=== PATIENT | female | born 2000 | race Caucasian/White ===

== ENCOUNTER 2023-06-10 09:16 | Emergency (ER) | payer MEDICAID, SELFPAY ==
[2023-06-10 09:22] VITALS: BP 132/77; PULSE 108; RESP 14; O2SAT 98
--- NOTE | 2023-06-10 09:30 | ED.OVERDOSE ---
HPI - Overdose General Chief Complaint: Overdose Stated Complaint: od on weed butter Time Seen by Provider: 06/10/23 09:19 History of Present Illness HPI Narrative: 22-year-old female unknown medical history presents to the emergency room for evaluation of suspected marijuana acute intoxication. Patient is accompanied by her sister is. According to the sister, patient ingested a note about of ?marijuana butter? yesterday afternoon at 4:00 pm. Patient states that she is a heavy user of cannabis daily. Denies any other recreational drug use or alcohol ingestion. Patient denies headache, LOC, chest pain or shortness of breath. Denies seizures Related Data Allergies Allergy/AdvReac Type Severity Reaction Status Date / Time No Known Allergies Allergy Verified 06/10/23 09:56 Review of Systems Review of Systems: All review of systems are unremarkable except those noted in HPI and below PMFSH Social History Social History Substance use type: marijuana Exam Narrative: GENERAL: Well-appearing, well-nourished, no physical limitations, and in no acute distress. HEAD: Normocephalic, atraumatic. EYES: Conjunctival injection, PERRLA and EOMI. ENT: External nose normal, Nares clear, no rhinorrhea or epistaxis. Mucous membranes dry. NECK: Supple. No meningeal signs. No adenopathy or masses. No carotid bruits or JVD CHEST: Clear to auscultation. No respiratory distress. No wheezes rales or rhonchi. HEART: Regular rate and rhythm. No murmur heard. Normal peripheral pulses. EXTREMITIES: Normal range of motion. No edema. No clubbing or cyanosis SKIN: Warm, dry, no rash. No noted wounds NEURO: No focal deficits. Alert and oriented x3. MAEW. CN's II-XI intact bilaterally, normal gait. mildly slurred speech PSYCH: Cooperative. Course Vital Signs Vital signs: Vital Signs Pulse Rate 108 H 06/10/23 09:22 Respiratory Rate 14 06/10/23 09:22 Blood Pressure 132/77 06/10/23 09:22 Pulse Oximetry 98 06/10/23 09:22 Oxygen Delivery Room Air 06/10/23 09:22 Pulse Rate 103 H 06/10/23 09:53 Respiratory Rate 19 06/10/23 09:53 Blood Pressure 124/80 06/10/23 09:53 Pulse Oximetry 100 04/18/24 09:53 Oxygen Delivery Room Air 06/10/23 09:22 MDM - Overdose MDM Narrative Medical decision making narrative: 22-year-old female S present to the ER suspicion of marijuana intoxication. Urine tox shows evidence of cannabis use only. CBC shows slight anemia. ETOH level 0. Will send patient home stable condition with family. Lab Data 06/10/23 09:34 06/10/23 09:34 Labs: Lab Results 06/10/23 06/10/23 Range/Units 09:34 09:52 WBC 7.2 (4.5-10.0) K/mm3 RBC 4.19 L (4.2-5.4) M/mm3 Hgb 10.9 L (12.0-15.0) g/dL Hct 33.9 L (37.0-47.0) % MCV 80.9 (80-100) fl MCH 26.0 (26-34) pg MCHC 32.2 (32-36) g/dl RDW 15.7 H (11.5-14.5) % Plt Count 270 (150-375) k/mm3 MPV 9.9 (7.4-10.4) fl Immature Gran % (Auto) 0.1 (0-0.5) % Neut % (Auto) 51.7 (45.5-73.1) % Lymph % (Auto) 38.4 (18.3-44.2) % Chaffee % (Auto) 8.6 H (2.6-8.5) % Eos % (Auto) 0.8 (0-4.4) % Baso % (Auto) 0.4 (0.2-1.2) % Lymph # (Auto) 2.77 (0.9-3.2) K/mm3 [place]affee # (Auto) 0.6 (0.1-0.6) K/mm3 Eos # (Auto) 0.1 (0-0.3) K/mm3 Baso # (Auto) 0.0 (0.0-0.1) K/mm3 Abs Immat Gran (auto) 0.01 (0.00-0.031) K/mm3 Absolute Neuts (auto) 3.7 (1.3-6.7) K/mm3 Absolute Nucleated RBC 0.000 (0.0-0.012) K/mm3 Nucleated RBC % 0.0 (0.0-0.2) % Sodium 139 (137-145) mmol/L Potassium 3.5 (3.4-5.0) mmol/L Chloride 109 H (98-107) mmol/L Carbon Dioxide 18 L (22-30) mmol/L Anion Gap 12 (4-12) mmol/L BUN 13 (7-17) mg/dL Creatinine 0.80 (0.7-1.0) mg/dL Estim Creat Clear Calc 94 ml/min Estimated GFR > 60 (59 - ) Glucose 145 H (65-110) mg/dL Calcium 9.5 (8.4-10.2) mg/dL Total Bilirubin 0.3 (0.2-1.3) mg/dL AST
[2023-06-10 09:39] VITALS: PULSE 98
[2023-06-10 09:40] LABS: Basophils Percent Auto 0.4 % (0.2-1.2); Eosinophils Absolute Auto 0.1 K/mm3 (0-0.3); Eosinophils Percent Auto 0.8 % (0-4.4); Hematocrit 33.9 % (37.0-47.0); Hemoglobin 10.9 g/dL (12.0-15.0); Immature Granulocyte Absolute 0.01 K/mm3 (0.00-0.031); Immature Granulocyte Percent A 0.1 % (0-0.5); Lymphocytes Absolute Auto 2.77 K/mm3 (0.9-3.2); Lymphocytes Percent Auto 38.4 % (18.3-44.2); Mean Corpuscular HGB Conc 32.2 g/dl (32-36); Mean Corpuscular Volume 80.9 fl (80-100); Mean Platelet Volume 9.9 fl (7.4-10.4); Monocytes Absolute Auto 0.6 K/mm3 (0.1-0.6); Monocytes Percent Auto 8.6 % (2.6-8.5); Neutrophils Absolute Auto 3.7 K/mm3 (1.3-6.7); Neutrophils Percent Auto 51.7 % (45.5-73.1); Platelet Count Result 270 k/mm3 (150-375); Red Blood Count 4.19 M/mm3 (4.2-5.4); Red Cell Distribution Width 15.7 % (11.5-14.5); White Blood Count 7.2 K/mm3 (4.5-10.0)
[2023-06-10 09:50] LABS: Alanine Aminotransferase 14 U/L (6-35); Albumin Level 4.5 g/dL (3.5-5.1); Alkaline Phosphatase 82 U/L (38-126); Anion Gap 12 mmol/L (4-12); Aspartate Amino Transferase 18 U/L (14-36); Bilirubin,Total 0.3 mg/dL (0.2-1.3); Blood Urea Nitrogen 13 mg/dL (7-17); Calcium 9.5 mg/dL (8.4-10.2); Carbon Dioxide 18 mmol/L (22-30); Chloride 109 mmol/L (98-107); Estimated CRCL calculation 94 ml/min; Estimated Glomerular Filt Rate > 60; Glucose 145 mg/dL (65-110); Potassium 3.5 mmol/L (3.4-5.0); Sodium 139 mmol/L (137-145)
[2023-06-10 09:53] VITALS: BP 124/80; PULSE 103; RESP 19; O2SAT 100
[2023-06-10 09:58] LABS: Ethanol < 10 mg/dL (<10)
[2023-06-10 10:07] LABS: Appearance Urine Cloudy (Clear); Bacteria Urine Rare /hpf; Bilirubin Urine Negative (Negative); Blood Urine Negative (Negative); Color Urine Yellow (Yellow); Glucose Urine UA Negative (Negative); Ketones Urine Negative (Negative); Leukocyte Esterase Ur 1+ LEU/UL (Negative); Nitrate Urine Negative (Negative); Non Pathogenic Casts 0-2; Protein Urine Negative (Negative); RBC Urine 0-2 /hpf (0-2); Specific Grav Ur 1.024 (1.001-1.035); Squamous Epithelial Cell Urine Few /hpf (Few); Urobilinogen Urine 0.2 mg/dL (<2.0); pH Urine 5.5 (5.0-9.0)
[2023-06-10 10:16] LABS: Add Urine Microscopic? YES
[2023-06-10 10:21] LABS: Amphetamine Screen Urine Negative (Negative); Barbiturate Screen Urine Negative (Negative); Benzodiazepines Screen Urine Negative (Negative); Cannabinoid Screen Urine Positive (Negative); Cocaine Screen Urine Negative (Negative); Methadone Screen Urine Negative (Negative); Opiate Screen Urine Negative (Negative); Phencyclidine Screen Urine Negative (Negative)
[2023-06-10 11:30] VITALS: BP 112/70; PULSE 87; RESP 16; O2SAT 99
== END 2023-06-10 11:31 | disposition home or self-care (01) ==
PROVIDERS: Emergency Provider Nurse Practitioner Family
DX: T40.711A Poisoning by cannabis, accidental (unintentional), initial encounter (principal); F12.929 Cannabis use, unspecified with intoxication, unspecified
CPT/HCPCS: 36415; 80053; 80307; 81001; 81025; 85025; 87086; 99284

== ENCOUNTER 2024-11-25 09:23 | Emergency (ER) | payer MEDICAID, SELFPAY ==
--- NOTE | ~2024-11-25 | XR_ITS ---
Examination: XR knee RT min 4V Clinical History: knee pain after feeling pop Comparison: None Technique: 4 views right knee Findings/impression: 1. No fracture, dislocation, or effusion right knee. 2. No significant degenerative changes. 3. Benign focus distal lateral femoral shaft. Reviewed, dictated and finalized at location R.
--- OUTSIDE RECORDS SUMMARY | 2024-11-25 09:26 | XMS_ITS | Clinical Summary ---
Author Organization [facility] Address [address] [place] [address] Phone Care Team Providers Care Medical Insurance Clerk Name Role Phone Enrique Allen DO Primary Care Provider + Allergies Active Allergy Reactions Criticality Noted Date Comments Peanut Anaphylaxis High 04/24/2024 Shellfish Containing Products Anaphylaxis High 05/10 Medications ferrous sulfate 325 mg (65 mg iron) tablet Take 325 mg by mouth daily. 02/27/2024 Active fluconazole (DIFLUCAN) 150 mg tablet Take 1 tablet by mouth today. May take another dose in 3 days(72 hours) if symptoms persist. 2 Tablet 06/01/2024 Active sertraline (ZOLOFT) 100 mg tablet Take 1 Tablet (100 mg) by mouth daily. 90 Tablet 09/11/2024 Active cyclobenzaprine (FLEXERIL) 10 mg tablet Take 1 Tablet (10 mg) by mouth daily at bedtime. 30 Tablet 09/11/2024 Active Active Problems Problem Noted Date Diagnosed Date ZAKIA (generalized anxiety disorder) Encounters Date Type Department Care Team Description 11/22/2024 Patient Outreach [facility] [address] [phone] [facility] Out[facility] [address] [phone] Silvia Lazo [facility] 11/06/2024 Telephone [facility] Care [address] [phone] Enrique Allen, DO Needs Orders Written 10/17/2024 External Device Data STL ABSTRACTION Provider, Abstract 10/17/2024 External Device Data STL ABSTRACTION Provider, Abstract 09/27/2024 External Device Data STL ABSTRACTION Provider, Abstract 09/12/2024 External Device Data STL ABSTRACTION Provider, Abstract 09/12/2024 External Device Data STL ABSTRACTION Provider, Abstract 09/11/2024 2:40 PM CDT Office Visit [facility] [address] [phone] Concha Grover MD ZAKIA (generalized anxiety disorder) (Primary Dx) from Last 3 Months Family History * Patient is adopted Medical History Relation Name Comments Breast Cancer Neg Hx Colon Cancer Neg Hx Ovarian Cancer Neg Hx Uterine Cancer Neg Hx Social History Tobacco Use Types Packs/Day Years Used Date Smoking Tobacco: Former Cigarettes Smokeless Tobacco: Never Tobacco Cessation:Counseling Given: Not Answered Alcohol Use Standard Drinks/Week Comments Yes 0 (1 standard drink = 0.6 oz pur e alcohol) rarely [facility] Utilities Answer Date Recorded In the past 12 months has e electric, gas, oil, or water company threatened to shut off services in your home? No 07/21/2023 Financial Resource Strain Answer Date R ecorded How hard is it for you to pa y for the very basics like food, housing, medical care, and heating? Very hard 07/21/2023 Food Insecurity Answer Date Recorded In the past 12 months, have you worried that your food would run out before you had money to buy more? Never true 07/21/2023 In the past 12 months, did y ou run out of food and didn't have money to buy more? Never true 07/21/2023 Transportation Needs Answer Date Record ed In the past 12 months, has l ack of transportation kept you from medical appointments or from getting medications? No 06/23 In the past 12 months, has l ack of transportation kept you from meetings, work, or from getting things needed for daily living? No 07/21/2023 Housing Stability Answer Date Recorded In the last 12 months, was t here a time when you were not able to pay the mortgage or rent on time? No 07/21/2023 Number of Times Moved in the Last Year Not on fi le 07/21/2023 Unstable Housing in the Last Year Not on file 07/21/2023 Feeling Safe Answer Date Recorded Are you in a relationship wi th someone who hurts you emotionally and/or physically? No 06/14/2024 Comments No Sex and Gender Information Value Date Recorded Sex Assigned at Not on file Legal Sex Female 5:36 PM EDUCATION NURSE Gender Identity Not on file Sexual Orientation Not on file Last Filed Vital Signs Vital Sign Reading Time Taken Comments Blood Pressure 106/68 09/11/2024 2:19 PM CDT Pulse 81 09/11/2024 2:19 PM CDT Temperature 36.8 C (98.2 F) 06/14/2024 3:17 PM CDT Respiratory Rate 16 06/14/2024 3:17 PM CDT Oxygen Saturation 99% 09/11/2024 2:19 PM CDT Inhaled Oxygen Concentration - - Weight 66.2 kg (146 lb) 09/11/2024 2:19 PM CDT Height 170.2 cm (5' 7) 09/11/2024 2:19 PM CDT Body Mass Index 22.87 09/11/2024 2:19 PM CDT Plan of Treatment Upcoming Encounters Date Type Department Care Team (Late st Contact Info) Description 12/13/2024 2:20 PM CDT Office Visit [facility] [address] [phone] Enrique Allen DO [address] [place] [phone] Health Maintenance Due Date Last Done Comments HPV VACCINES (1 - 3-dose series) 2016 DTAP/TDAP/TD VACCINES (1 - Tdap) 2020 HEPATITIS B VACCINES (1 of 3 - 19+ 3-dose series) 2020 HPV/Cotest (21-29) 2022 INFLUENZA VACCINE (#1) 2024 Preventative Visit-Managed Medicaid 04/25/202504/24, 03/06/2024 CHLAMYDIA SCREENING (ANNUAL) 11-24 YEARS 05/30/2025 05/30/2024, 09/17/2023 CERVICAL CANCER SCREENING 04/25/2027 PAP SMEAR 04/25/2027 04/24/2024 Procedures Procedure Name Priority Date/Time Associated Diagnosis Comments VAGINOSIS/VAGINITIS PANEL PLUS Routine 05/30/2024 3:13 PM CDT Vaginal discharge CERV/VAG CYTO AGE BASED SCREEN PAP W CT/NG, TRICH Routine 04/24/2024 3:08 PM EDUCATION NURSE Screening for cervical cancer Screening examination for STD (sexually transmitted disease) from Last 3 Months or Most Recently Relevant to Health Maintenance Results * (ABNORMAL) VAGINOSIS/VAGINITIS PANEL PLUS (05/30/2024 3:13 PM CDT) BACTERIAL VAGINOSIS NEGATIVE NEGATIVE [facility] DIAMOND SPECIES DETECTED(A) NOT DETECTED [facility] DIAMOND GLABRATA NOT DETECTED NOT DETECTED [facility] Comment: Diamond species C. albicans, C. tropicalis, C. parapsilosis, and/or C. dubliniensis can be detected, but not differentiated, in the Diamond spp. result. TRICHOMONAS VAGINALIS (TV), TMA NOT DETECTED NOT DETECTED [facility] CHLAMYDIA TRACHOMATIS RNA, TMA, UROGENITAL NOT DETECTED NOT DETECTED [facility] NEISSERIA GONORRHOEAE RNA, TMA, UROGENITAL NOT DETECTED NOT DETECTED [facility] Comment: For additional information, please refer to https://education.Sense of Skin/faq/KJO224 (This link is being provided for information/ educational purposes only.) Test Performed at: [email or web address] [id number] [place] [address] Zuleyma Del Toro MD Genital SPECIMEN FROM VAGINA / Unknown 05/30/2024 3:13 PM CDT 05/31/2024 7:50 AM CDT Juan M Avalos MD MICROBIOLOGY - GENERAL ORD ERABLES Final Result [facility] [phone] [email or web address] [id number] [place] [phone] * CERV/VAG CYTO AGE BASED SCREEN PAP W CT/NG, TRICH (04/24/2024 3:08 PM EDUCATION NURSE) COMMENT (PAP): [facility] Comment: This order for age-based cervical cancer and STI screening follows ACOG guidelines(PB 168, 140, NJI728). See individual assays for performing site location. CLINICAL INFORMATION [facility] Comment:None given LAST MENSTRUAL PERIOD [facility] Comment:NONE GIVEN PREV PAP: [facility] Comment:NONE GIVEN PREV BX: [facility] Comment:NONE GIVEN SOURCE [facility] Comment:Endocervix ADEQUACY: [facility] Comment: Satisfactory for evaluation. Endocervical/transformation zone component present. Age and/or menstrual status not provided PAP INTERP [facility] Comment: Cytology Results: Negative for intraepithelial lesion or malignancy. COMMENT (PAP TEST) [facility] Comment: This Pap test has been evaluated with computer assisted technology. CORONER FORENSIC TECHNICIAN: [facility] Comment: MVB, CT(ASCP) CT Screening Location: [place] [address] [place] [address] EXPLANATORY NOTE [facility] Comment: EXPLANATORY NOTE: The Pap is a screening test for cervical cancer. It is not a diagnostic test and is subject to false negative and false positive results. It is most reliable when a satisfactory sample, regularly obtained, is submitted with relevant clinical findings and history, and when the Pap result is evaluated along with historic and current clinical information. CHLAMYDIA TRACHOMATIS RNA, TMA, UROGENITAL NOT DETECTED NOT DETECTED [facility] NEISSERIA GONORRHOEAE RNA, TMA, UROGENITAL NOT DETECTED NOT DETECTED [facility] COMMENT INFECTIOUS DISEASE [facility] Comment: The analytical performance characteristics of this assay, when used to test SurePath(TM) specimens have been determined by [facility]. The modifications have not been cleared or approved by the FDA. This assay has been validated pursuant to the CLIA regulations and is used for clinical purposes. For additional information, please refer to https://[employer].Sense of Skin/faq/QAE004 (This link is being provided for information/ educational purposes only.) TRICHOMONAS VAGINALIS,QUALITAT LUCIE,PAP VIAL NOT DETECTED NOT DETECTED [facility] Comment: The analytical performance characteristics of this assay have been determined by [facility]. The modifications have not been cleared or approved by the FDA. This assay has been validated pursuant to the CLIA regulations and is used for clinical purposes. For additional information, please refer to http://[employer].Sense of Skin/ faq/Trichomonastma (This link is being provided for information/ educational purposes only.) Test Performed at: [facility] [address] [place] [address] Zuleyma BRIONES Genital SWAB OF ENDOCERVIX / Unknown 04/24/2024 3:08 PM EDUCATION NURSE 04/25/2024 4:55 AM EDUCATION NURSE Brisa Siddiqui NP PATHOLOGY/CYTOLOGY ORDERAB LES Final Result [facility] [phone] [facility] [address] [phone] from Last 3 Months or Most Recently Relevant to Health Maintenance Insurance [facility] MEDICAID Care Teams Medical Insurance Clerk Relationship Specialty Start Date End Date Enrique Allen DO [address] [place] [phone] PCP - General Family Practice 03/06/24
--- OUTSIDE RECORDS SUMMARY | 2024-11-25 09:33 | XMS_ITS | Clinical Summary ---
Author Organization [facility] Address [address] [place] [address] Care Team Providers Care Continuum Of Care Manager Name Role Phone Enrique Allen MD Primary Care Provider + Source Comments [facility],non-owned Affiliates and Associated Physician Practices is amultiple site organization consisting of ambulatory clinics and hospital sitesin [place], [place], [place] and [place]. This disclosure is being madepursuant to the Care Everywhere program and may not contain all information available regarding this patient. Last updated 17.[facility] Allergies No known active allergies Medications * Be aware that medications may not be up to date on this document. Alwaysverify current medications with the patient. cyclobenzaprine (Flexeril) 10 MG tablet Take 1 (one) tablet by mouth at bedtime 30 tablet 02/14/2024 Active ferrous sulfate 325 (65 FE) MG tablet Take 1 (one) tablet by mouth once daily 100 tablet 02/27/2024 Active naproxen (Naprosyn) 500 MG tablet Take 1 (one) tablet by mouth 2 times daily 30 tablet 11/23/2024 Active Encounters Date Type Department Care Team Description 11/22/2024 11:29 PM CDT - 11/23/2024 2:12 AM CDT Emergency ER at [address] [address] Les Emery MD Right leg pain; Trochanteric bursitis of right hip Discharge Disposition: Home or Self Care 11/22/2024 Travel from Last 3 Months Social History Tobacco Use Types Packs/Day Years Used Date Smoking Tobacco: Never Smokeless Tobacco: Never Tobacco Cessation:Counseling Given: Not Answered Alcohol Use Standard Drinks/Week Comments Not Currently 0 (1 standard drink = 0.6 oz pur e alcohol) AUDIT-C Answer Date Recorded Q1: How often do you have a drink containing alc ohol? Never 11/22/2024 Average Number of Drinks Not on file 025 Q3: How often do you have si x or more drinks on one occasion? Never 11/22/2024 Comments Unknown Sex and Gender Information Value Date Recorded Sex Assigned at Not on file Legal Sex Female 11:21 PM TELEMETRY REGISTERED NURSE Gender Identity Not on file Sexual Orientation Not on file Last Filed Vital Signs Vital Sign Reading Time Taken Comments Blood Pressure 115/66 11/22/2024 11:27 PM CDT Pulse 72 11/22/2024 11:27 PM CDT Temperature 36.4 C (97.5 F) 11/22/2024 11:27 PM CDT Respiratory Rate 16 11/22/2024 11:27 PM CDT Oxygen Saturation 98% 11/22/2024 11:27 PM CDT Inhaled Oxygen Concentration - - Weight 74.8 kg (165 lb) 11/22/2024 11:27 PM CDT Height 170.2 cm (5' 7) 11/22/2024 11:27 PM CDT Body Mass Index 25.84 11/22/2024 11:27 PM CDT Plan of Treatment Health Maintenance Due Date Last Done Comments HIV SCREENING 2016 HPV VACCINE (1 - 3-dose series) 2016 CHLAMYDIA/GONORRHEA SCREENING 2017 MENINGOCOCCAL (Group B) VACC INE SHARED DECISION-MAKING (1 of 2 - Standard) 2017 HEPATITIS C SCREENING 12/01/2019 DTAP/TDAP/TD VACCINES (1 - Tdap) 2020 HEPATITIS B VACCINE (1 of 3 - 19+ 3-dose series) 2020 PAP SMEAR 2022 DEPRESSION SCREENING 02/23/2024 COVID-19 VACCINE (1 - 2023-2 5 season) 2024 INFLUENZA VACCINE (#1) 2024 ZOSTER VACCINE (1 of 2) 12/06/2051 HIB VACCINE Aged Out No longer eligi ble based on patient's age to complete this topic MENINGOCOCCAL GROUPS A/C/Y/W VACCINE Aged Out No longer eligible b ased on patient's age to complete this topic PNEUMOCOCCAL VACCINE Aged Out No long er eligible based on patient's age to complete this topic Procedures Procedure Name Priority Date/Time Associated Diagnosis Comments XR KNEE RIGHT 3VW STAT 11/23/2024 1:4 5 AM CDT Right leg pain XR PELVIS W RIGHT HIP 2VW STAT 11/23/2024 1:39 AM CDT Right leg pain D-DIMER STAT 11/23/2024 12:49 AM CDT HCG URINE QUALITATIVE STAT 11/23/2024 12:06 AM CDT from Last 3 Months Results * XR KNEE 3 VW RIGHT (11/23/2024 1:45 AM CDT) Anatomical Region Laterality Modality Lower Extremity Radiographic Trish ging 11/23/2024 8:12 AM CDT Impressions 11/23/2024 8:29 AM CDT IMPRESSION: Negative x-rays of right knee. > Interpreting Provider: Walt Rios MD on 11/23/2024 8:29 AM Narrative 11/23/2024 8:29 AM CDT PROCEDURE: XR KNEE RIGHT 3VW DATE/TIME OF EXAM: 11/23/2024 1:45 AM CLINICAL INFORMATION: None relevant/not provided if blank. Indication: M79.604: Right leg pain Additional History: COMPARISON: None. FINDINGS: No fracture or joint effusion is seen in the right knee. All 3 compartments of the right knee are well-preserved. Procedure Note Walt Rios MD - 11/23/2024 PROCEDURE: XR KNEE RIGHT 3VW DATE/TIME OF EXAM: 11/23/2024 1:45 AM CLINICAL INFORMATION: None relevant/not provided if blank. Indication: M79.604: Right leg pain Additional History: COMPARISON: None. FINDINGS: No fracture or joint effusion is seen in the right knee. All 3compartments of the right knee are well-preserved. IMPRESSION: Negative x-rays of right knee. > Interpreting Provider: Walt Rios MD on 11/23/2024 8:29 AM us Les Emery MD DIAGNOSTIC IMAGING ORDERABLE S Final Result * XR PELVIS W RIGHT HIP 2VW (11/23/2024 1:39 AM CDT) Anatomical Region Laterality Modality Pelvis Radiographic Trish ging 11/23/2024 8:12 AM CDT Impressions 11/23/2024 8:37 AM CDT IMPRESSION: Negative x-rays of the pelvis and hips. > Interpreting Provider: Walt Rios MD on 11/23/2024 8:37 AM Narrative 11/23/2024 8:37 AM CDT PROCEDURE: XR PELVIS W RIGHT HIP 2VW DATE/TIME OF EXAM: 11/23/2024 1:44 AM CLINICAL INFORMATION: None relevant/not provided if blank. Indication: M79.604: Right leg pain Additional History: COMPARISON: None. TECHNIQUE: FINDINGS: No fracture or AVN is seen in the pelvis and hips. Both femoral acetabular joints are well-preserved. The pubic symphysis and the SI joints are well-preserved. Procedure Note Walt Rios MD - 11/23/2024 PROCEDURE: XR PELVIS W RIGHT HIP 2VW DATE/TIME OF EXAM: 11/23/2024 1:44 AM CLINICAL INFORMATION: None relevant/not provided if blank. Indication: M79.604: Right leg pain Additional History: COMPARISON: None. TECHNIQUE: FINDINGS: No fracture or AVN is seen in the pelvis and hips. Both femoralacetabular joints are well-preserved. The pubic symphysis and the SI joints are well-preserved. IMPRESSION: Negative x-rays of the pelvis and hips. > Interpreting Provider: Walt Rios MD on 11/23/2024 8:37 AM us Les Emery MD DIAGNOSTIC IMAGING ORDERABLE S Final Result * (ABNORMAL) D-DIMER (11/23/2024 12:49 AM CDT) D-Dimer <0.27(L) 0.27 - 0.50 ug/mL FEU 11/23/2024 1:07 AM CDT [facility] Blood BLOOD SPECIMEN / Unknown Venipuncture / Unknown 11/23/2024 12:49 AM CDT 11/23/2024 12:51 AM CDT [facility] - 11/23/2024 1:07 AM CDT In the absence of clinical symptoms, a value less than or equal to 0.5 mcg/mL FEU significantly decreases the probability of PE/DVT (negative predictive value >95%). 1 mcg/ml FEU = 1 Fibrinogen Equivalent Unit (approximates 0.5 mcg/mL of D- dimer). Les Emery MD LAB - COAGULATION ORDERABLES Final Result Performing Organization Address [facility] Co de Phone Number [facility] [address] [place] [address] * HCG URINE QUALITATIVE (11/23/2024 12:06 AM CDT) Pathologist [facility] hCG Qualitative Urine Negative Negative 11/23/2024 12:24 AM CDT [facility] Urine URINE / Unknown Collection / Unknown 11/23/2024 12:06 AM CDT 11/23/2024 12:20 AM CDT [facility] - 11/23/2024 12:24 AM CDT Specimens containing human anti-mouse antibodies may exhibit false positive or false negative results. If qualitative interpretation is inconsistent with clinical evaluation, consider confirmation by an alternative hCG method. Les Emery MD LAB - URINALYSIS ORDERABLES Final Result Performing Organization Address [facility] Co de Phone Number [facility] [address] [place] [address] from Last 3 Months Insurance MEDICAID LAKISHA MYERS Care Teams Continuum Of Care Manager Relationship Specialty Start Date End Date Enrique Allen MD [address] [place] [phone] PCP - General Family Medicine 11/22/24
[2024-11-25 09:36] VITALS: BP 124/68; PULSE 68; RESP 18; TEMP 36.5; O2SAT 100
--- NOTE | 2024-11-25 09:46 | ED.LOWEXIN ---
HPI - Extremity Injury (Lower) General Chief Complaint: Extremity Injury, Lower Stated Complaint: right leg swollen Time Seen by Provider: 11/25/24 09:24 Source: patient Mode of arrival: ambulatory Limitations: no limitations History of Present Illness HPI Narrative: Patient is a 23-year-old female who presents with right leg pain. Initial injury was 6 days ago when she tripped and fell on metal in a junk yard. Tetanus shot up to date. Patient was seen at emergency department 3 days ago for leg pain and was told she had bursitis. Patient is taking steroids of is now having increased pain after feeling a knee pop this morning. Patient has been using Nate wrap from knee to bloom and has noticed ankle swelling. Reports pain is a 6/10 when walking. Related Data Home Medications ?Medication ?Instructions ?Recorded ?Confirmed ?Last Taken ?Type norethindrone 1 mg-ethinyl tablet 11/25/24 Unknown History estradiol 35 mcg tablet (Nortrel) sertraline 100 mg tablet mg 11/25/24 Unknown History Allergies Allergy/AdvReac Type Severity Reaction Status Date / Time No Known Allergies Allergy Verified 11/25/24 09:26 Review of Systems Review of Systems: All systems reviewed & are unremarkable except as noted in HPI and below Constitutional: Constitutional: Denies body ache(s), Denies chills, Denies fatigue, Denies fever(s), Denies headache(s), Denies malaise and Denies weakness Eyes: Eyes: Denies blurry vision, Denies irritation and Denies loss of vision ENT: Denies otalgia, Denies headache(s), Denies nasal discharge, Denies sinus pain and Denies sore throat Cardiovascular: Cardiovascular: Denies chest pain, Denies irregular heart rhythm and Denies dyspnea Respiratory: Respiratory: Denies dyspnea Gastrointestinal: Gastrointestinal: Denies abdominal pain, Denies melena, Denies hematochezia, Denies diarrhea, Denies nausea and Denies vomiting Musculoskeletal: Musculoskeletal: Denies back pain, Reports myalgias and Denies arthralgias Integumentary/Breasts: Skin/Breast: Denies pruritus and Denies rash Neurologic: Denies headache(s), Denies loss of vision and Denies weakness Psychiatric: Psychiatric: Reports no additional psychiatric complaints Endocrine: Endocrine: Denies fatigue PMFSH Social History Social History Substance use type: marijuana Comments At time of signature, agree with nursing past medical, surgical, social and family history. There is no relevant family history pertinent to the presenting complaint. Exam Const: General: cooperative, healthy appearing, comfortable, no acute distress and well nourished Nutritional Appearance: well nourished Orientation/consciousness: patient oriented x3 Limitations: no limitations HENMT: Head: normal to inspection, normocephalic and atraumatic Ears: hearing grossly normal bilaterally and external ears normal Face/Nose/Sinus: Normal external nose present, normal facial exam and face symmetric Face and sinus: normal facial exam and face symmetric Mouth: Yes lip normal Eyes: General: appearance normal, both eyes and all related structures Alignment and Position: alignment normal and position normal Periorbital: periorbital findings normal Eyelids: eyelids normal Pupils: Equal, round and reactive pupils present EOM: EOMs intact bilaterally Neck: Neck: normal visual inspection, full ROM and supple Chest: Chest palpation & inspection: normal inspection of the chest Resp: Effort & Inspection: normal respiratory effort and able to speak in complete sentences Auscultation: clear to auscultation bilaterally Cardio: Rate: regular rate Rhythm: regular rhythm Heart sounds: S1 normal heart sound present and S2 normal heart sound present GI: Inspection: normal to inspection Skin: General skin exam: normal color and no rashes or lesions noted Neuro: General: patient oriented x3 and moves all extremities Cranial nerves: Yes Equal, round and reactive pupils present Speech: normal speech Gait exam (Neuro): Normal gait present Extrem: General: normal to inspection, full ROM and no edema Right lower extremity: hip/thigh Details: normal to inspection and normal ROM; no tenderness and no swelling, knee Details: normal to inspection, tenderness Location: of the popliteal fossa and normal ROM; no swelling, lower leg Details: normal to inspection and tenderness Location: of the posterior calf; no ecchymosis, ankle Details: normal to inspection, swelling Details: diffusely and normal ROM; no tenderness and foot Details: normal capillary refill, abnormal to inspection, toes with normal ROM and vascular exam Details: dorsalis pedis pulse present and normal capillary refill; no tenderness Psych: Appearance: grossly normal and well kempt Mental Status: mental status grossly normal Speech and movement: Normal speech and movement present Affect: normal affect Attitude: cooperative Thought process: Normal thought process present Course Course Emergency Course: Patient is aware of diagnosis, understands and agrees to treatment plan. Anticipatory guidance given. Patient agrees to follow-up as directed and is aware of reasons to seek care at the emergency department. Portions of this record may have been created with voice recognition software Level of Care: Express Care Visit Vital Signs Vital signs: Vital Signs Temperature 36.5 C 11/25/24 09:36 Pulse Rate 68 11/25/24 09:36 Respiratory Rate 18 11/25/24 09:36 Blood Pressure 124/68 11/25/24 09:36 Pulse Oximetry 100 11/25/24 09:36 Oxygen Delivery Room Air 11/25/24 09:36 Temperature 36.5 C 11/25/24 09:36 Pulse Rate 68 11/25/24 09:36 Respiratory Rate 18 11/25/24 09:36 Blood Pressure 124/68 11/25/24 09:36 Pulse Oximetry 100 11/25/24 09:36 Oxygen Delivery Room Air 11/25/24 09:36 Reviewed MDM - Extremity Injury (Lower) MDM Narrative Medical decision making narrative: Patient is able to bear weight and ambulate with pain. No surface of trauma or obvious effusion. No overlying erythema or warmth. The R knee is without obvious asymmetry or deformity when comparing to the L. Fully extended knee, internal and external rotation. Nontender to palpate of the patella, no effusion. Nontender over the infrapatellar tendon.. Nontender over the medial or lateral joint line, or medial or lateral tibial plateaus. Nontender over the proximal fibular head. tender, but no fullness or mass of the popliteal fossa. NO quadriceps tenderness. No laxity of the ACL, PCL, MCL, LCL. Distal motor and neurovascular status intact. Discussed appropriate use of Nate wrap including tightness and starting in ankle to decrease the amount of fluid that is being trapped. Will add some muscle relaxers Pt well hydrated appearing, in no respiratory distress, hemodynamically stable. Recommend supportive care. The patient is stable at time of discharge the clinical impression was discussed and the patient was given the opportunity to ask questions, which were addressed as completely as possible given the information available at present. Anticipatory guidance and return to care precautions were discussed and the importance of primary care follow-up was stressed and encouraged. The patient voiced understanding of the plan, indications to return, and the need for follow-up. Exam findings show no acute concerns or changes Patient is appropriate for outpatient treatment and follow-up. Differential Diagnosis Differential diagnosis: Likely ankle sprain and strain, acute internal derangement of knee and other (Bursitis, sciatic, muscle strain) Medical Records Attestation: I reviewed the patient's medical records. Imaging Data Radiologist's impression: Examination: XR knee RT min 4V Clinical History: knee pain after feeling pop Comparison: None Technique: 4 views right knee Findings/impression: 1. No fracture, dislocation, or effusion right knee. 2. No significant degenerative changes. 3. Benign focus distal lateral femoral shaft. Reviewed, dictated and finalized at location R. Discharge Plan Discharge Clinical Impression: Muscle strain of right lower extremity Qualifiers: Encounter type: initial encounter Qualified Code(s): S86.911A - Strain of unspecified muscle(s) and tendon(s) at lower leg level, right leg, initial encounter Patient Disposition: Home Condition: Stable Instructions: Muscle Strain (ED) Additional Instructions: X-ray shows no fractures Avoid activities that cause pain until the pain subsides. Ice to the area 20-30 minutes 4-6 times a day Elevate above heart Elastic wrap or orthopedic splint as directed for comfort for the next 5-7 days For pain, you may take: Tylenol 650-1000mg by mouth every 4-6 hours. Do not exceed 4000mg in 24 hours. Advil (Ibuprofen) 600 mg by mouth every 6 hours. Do not exceed 2400mg in 24 hours. 8 AM: Tylenol 11 AM: Ibuprofen 2 PM: Tylenol 5 PM: Ibuprofen 8 PM: Tylenol 11 PM: Ibuprofen 2 AM: Tylenol 5 AM: Ibuprofen Follow up with your primary care provider if the condition is not improving within 1 week. If the condition worsens with numbness, tingling, decrease sensation with weakness seek treatment in the emergency room immediately. Patient Language: Tuvaluan Prescriptions: New baclofen 10 mg tablet 10 mg PO BID Qty: 10 0RF No Action sertraline 100 mg tablet Nortrel (28) 1-35 mg-mcg tablet Follow-up/Referrals: Juan Antonio Zayas MD [Physician, Family Practice] - 3 Days Stand Alone Forms: Work/School Release IP Time of Disposition: 10:41
== END 2024-11-25 10:47 | disposition home or self-care (01) ==
PROVIDERS: Emergency Provider Nurse Practitioner Family
DX: S86.911A Strain of unspecified muscle(s) and tendon(s) at lower leg level, right leg, initial encounter (principal); X58.XXXA Exposure to other specified factors, initial encounter; F41.9 Anxiety disorder, unspecified; F32.A Depression, unspecified; Z86.16 Personal history of COVID-19
CPT/HCPCS: 73564; 99213; G0463